=== PATIENT | male | born 1985 | race Two or more races ===

== ENCOUNTER 2017-05-14 15:36 | Emergency (ER) | payer OTHER ==
[~2017-05-14] VITALS: Ht 175.3 cm; Wt 93.0 kg
[2017-05-14] MEDS ORDERED: ETOMIDATE (2MG/ML) 20ML VIAL IV ONE (17:30)
[2017-05-14 19:05] VITALS: BP 153/88
[2017-05-14] MEDS ORDERED: HYDROcodone-ACET 10/325MG TAB PO ONE (19:30)
== END 2017-05-14 21:09 | disposition home or self-care (01) ==
LOC: ER 15:51
DX: S82.301A Unspecified fracture of lower end of right tibia, initial encounter for closed fracture (principal); S82.401A Unspecified fracture of shaft of right fibula, initial encounter for closed fracture; X50.0XXA Overexertion from strenuous movement or load, initial encounter; Y93.89 Activity, other specified; Y99.8 Other external cause status; Y92.89 Other specified places as the place of occurrence of the external cause
CPT/HCPCS: 73590; 73610; 99152; 99291